=== PATIENT | male | born 1930 | race Caucasian/White ===

== ENCOUNTER 2018-07-20 11:24 | Inpatient (IN) | payer MEDICARE ==
[~2018-07-20] VITALS: Ht 177.8 cm; Wt 81.0 kg
--- NOTE | 2018-07-20 11:48 | EKG ---
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
[2018-07-20 11:51] LABS: BASO # 0.1 x10^3/uL (0.0-0.2); BASO % 1 % (0-3); EOS % 0 % (0-3); HEMATOCRIT 43.9 % (39.0-53.0); HEMOGLOBIN 14.8 g/dL (13.0-17.5); LYMPH # 1.3 x10^3/uL (1.0-4.8); LYMPH % 14 % (24-48); MEAN CORPUSCULAR HEMOGLOBIN 33 pg (25-35); MEAN CORPUSCULAR HGB CONC 34 g/dL (31-37); MEAN CORPUSCULAR VOLUME 97 fL (79-100); MONO # 1.5 x10^3/uL (0.0-1.1); MONO % 17 % (0-9); NEUT # 6.2 x10^3uL (1.8-7.7); NEUT % 68 % (31-73); PLATELET COUNT 175 x10^3/uL (140-400); RED BLOOD COUNT 4.54 x10^6/uL (4.30-5.70); RED CELL DISTRIBUTION WIDTH 14.4 % (11.5-14.5)
[2018-07-20 12:05] LABS: ALBUMIN 3.5 g/dL (3.4-5.0); ALBUMIN/GLOBULIN RATIO 0.9 (1.0-1.7); CALCIUM 8.7 mg/dL (8.5-10.1); CREATININE 0.9 mg/dL (0.7-1.3); GFR 79.8; POTASSIUM 3.9 mmol/L (3.5-5.1); TOTAL PROTEIN 7.2 g/dL (6.4-8.2)
--- NOTE | 2018-07-20 12:13 | RAD ---
CT of the head without contrast, 07/20/2018: HISTORY: Syncope There is moderate cerebral atrophy. The ventricles are mildly enlarged on a compensatory basis. There is no shift of the midline structures. There is no evidence of acute intracranial hemorrhage or mass effect. Bilateral basal ganglia calcifications are present. There are minimal lucencies in the deep white matter bilaterally most commonly due to small vessel chronic ischemic change. IMPRESSION: 1. Cerebral atrophy. 2. Mild deep white matter lucencies compatible with chronic ischemic change. 3. No acute intracranial abnormality is detected. PQRS Compliance Statement: One or more of the following individualized dose reduction techniques were utilized for this examination: 1. Automated exposure control 2. Adjustment of the mA and/or kV according to patient size 3. Use of iterative reconstruction technique Electronically signed by: Louis James MD (07/20/2018 12:09 PM) [facility]
--- NOTE | 2018-07-20 12:14 | RAD ---
Chest, 2 views, 07/20/2018: HISTORY: Syncope The heart size and pulmonary vascularity are normal. No pulmonary infiltrate is seen. There is no evidence of pleural fluid. Minimal spurring is present in the spine. IMPRESSION: No acute cardiopulmonary abnormality is detected. Electronically signed by: Louis James MD (07/20/2018 12:10 PM) [facility]
--- NOTE | 2018-07-20 12:23 | PHYS DOC ---
Adult General Chief Complaint Chief Complaint: SYNCOPE HPI HPI 88-year-old male presents via EMS with syncope. She was going to his PCPs office today for left preauricular pain. He drove there himself. After he got out of the car, he apparently passed out. He does not remember getting out of the car passing out. He was found there by bystanders. The next thing he remembers was waking up to 2 nurses helping him get up. He was able to walk into the office. He admits that he does not remember much about the incident were walking into the office. He denies any pain at this time except for the left ear pain. Patient denies any recent illness. He denies fevers or chills. He has been eating and drinking normally. He is unsure of his medical history. Review of Systems Review of Systems Constitutional: Denies fever or chills [] Eyes: Denies change in visual acuity, redness, or eye pain [] HENT: Ear pain[] Respiratory: Denies cough or shortness of breath [] Cardiovascular: No additional information not addressed in HPI [] GI: Denies abdominal pain, nausea, vomiting, bloody stools or diarrhea [] : Denies dysuria or hematuria [] Musculoskeletal: Denies back pain or joint pain [] Integument: Denies rash or skin lesions [] Neurologic: Syncope [] Endocrine: Denies polyuria or polydipsia [] All other systems were reviewed and found to be within normal limits, except as documented in this note. Allergies Allergies Allergies Coded Allergies Type Severity Reaction Last Updated Verified No Known Drug Allergies 07/20/18 No Physical Exam Physical Exam Constitutional: Well developed, well nourished, no acute distress, non-toxic appearance. [] HENT: Normocephalic, atraumatic, bilateral external ears normal, oropharynx moist, no oral exudates, nose normal. Tenderness to palpation of the left preauricular skin. No obvious mass or cellulitis.[] Eyes: PERRLA, EOMI, conjunctiva normal, no discharge. [] Neck: Normal range of motion, no tenderness, supple, no stridor. [] Cardiovascular:Heart rate regular rhythm, no murmur [] Lungs & Thorax: Bilateral breath sounds clear to auscultation [] Abdomen: Bowel sounds normal, soft, no tenderness, no masses, no pulsatile masses. [] Skin: Warm, dry, no erythema, no rash. [] Back: No tenderness, no CVA tenderness. [] Extremities: No tenderness, no cyanosis, no clubbing, ROM intact, no edema. [] Neurologic: Alert and oriented, normal motor function, normal sensory function, no focal deficits noted. [] Psychologic: Affect normal, judgement normal, mood normal. [] Current Patient Data Lab Results Laboratory Tests Test 07/20/18 11:37 White Blood Count 9.0 x10^3/uL (4.0-11.0) Red Blood Count 4.54 x10^6/uL (4.30-5.70) Hemoglobin 14.8 g/dL (13.0-17.5) Hematocrit 43.9 % (39.0-53.0) Mean Corpuscular Volume 97 fL (79-100) Mean Corpuscular Hemoglobin 33 pg (25-35) Mean Corpuscular Hemoglobin Concent 34 g/dL (31-37) Red Cell Distribution Width 14.4 % (11.5-14.5) Platelet Count 175 x10^3/uL (140-400) Neutrophils (%) (Auto) 68 % (31-73) Lymphocytes (%) (Auto) 14 % (24-48) L Monocytes (%) (Auto) 17 % (0-9) H Eosinophils (%) (Auto) 0 % (0-3) Basophils (%) (Auto) 1 % (0-3) Neutrophils # (Auto) 6.2 x10^3uL (1.8-7.7) Lymphocytes # (Auto) 1.3 x10^3/uL (1.0-4.8) Monocytes # (Auto) 1.5 x10^3/uL (0.0-1.1) H Eosinophils # (Auto) 0.0 x10^3/uL (0.0-0.7) Basophils # (Auto) 0.1 x10^3/uL (0.0-0.2) Sodium Level 137 mmol/L (136-145) Potassium Level 3.9 mmol/L (3.5-5.1) Chloride Level 101 mmol/L (98-107) Carbon Dioxide Level 30 mmol/L (21-32) Anion Gap 6 (6-14) Blood Urea Nitrogen 15 mg/dL (8-26) Creatinine 0.9 mg/dL (0.7-1.3) Estimated GFR (Cockcroft-Gault) 79.8 BUN/Creatinine Ratio 17 (6-20) Glucose Level 97 mg/dL (70-99) Calcium Level 8.7 mg/dL (8.5-10.1) Total Bilirubin 1.0 mg/dL (0.2-1.0) Aspartate Amino Transferase (AST) 20 U/L (15-37) Alanine Aminotransferase (ALT) 23 U/L (16-63) Alkaline Phosphatase 105 U/L (46-116) Troponin I Quantitative 0.017 ng/mL (0-0.055) Total Protein 7.2 g/dL (6.4-8.2) Albumin 3.5 g/dL (3.4-5.0) Albumin/Globulin Ratio 0.9 (1.0-1.7) L EKG EKG Sinus rhythm, rate 89,, normal axis, left bundle branch block since 2-15, no ST elevations or depressions.[] Radiology/Procedures Radiology/Procedures [] Impressions: CT of the head without contrast, 07/20/2018: HISTORY: Syncope There is moderate cerebral atrophy. The ventricles are mildly enlarged on a compensatory basis. There is no shift of the midline structures. There is no evidence of acute intracranial hemorrhage or mass effect. Bilateral basal ganglia calcifications are present. There are minimal lucencies in the deep white matter bilaterally most commonly due to small vessel chronic ischemic change. IMPRESSION: 1. Cerebral atrophy. 2. Mild deep white matter lucencies compatible with chronic ischemic change. 3. No acute intracranial abnormality is detected. PQRS Compliance Statement: One or more of the following individualized dose reduction techniques were utilized for this examination: 1. Automated exposure control 2. Adjustment of the mA and/or kV according to patient size 3. Use of iterative reconstruction technique Electronically signed by: Louis James MD (07/20/2018 12:09 PM) [facility] DICTATED AND SIGNED BY: LOUIS JAMES MD DATE: 07/20/18 1206 CC: HIRAM CARMONA DO; PCP,NO Chest, 2 views, 07/20/2018: HISTORY: Syncope The heart size and pulmonary vascularity are normal. No pulmonary infiltrate is seen. There is no evidence of pleural fluid. Minimal spurring is present in the spine. IMPRESSION: No acute cardiopulmonary abnormality is detected. Electronically signed by: Louis James MD (07/20/2018 12:10 PM) [facility] DICTATED AND SIGNED BY: LOUIS JAMES MD DATE: 07/20/18 1209 CC: HIRAM CARMONA DO; PCP,NO Course & Med Decision Making Course & Med Decision Making Pertinent Labs and Imaging studies reviewed. (See chart for details) Patient's labs are unremarkable. His urinalysis is unremarkable. His EKG is unremarkable. His chest x-ray is unremarkable. His head CT is negative for acute findings. I do not have a reason for the patient's syncope. I do believe he warrants additional workup. I discussed the case with Dr. Staples and he has accepted the patient for admission. The patient is in agreement with admission. [] Dragon Disclaimer Dragon Disclaimer This electronic medical record was generated, in whole or in part, using a voice recognition dictation system. Departure Departure: Impression: Primary Impression: Syncope Disposition: 09 ADMITTED INPATIENT Admitting Physician: Rita Staples Condition: STABLE Referrals: PCP,NO (PCP) Problem Qualifiers Primary Impression: Syncope Syncope type: unspecified Qualified Codes: R55 - Syncope and collapse HIRAM CARMONA DO Jul 20, 2018 12:23
[2018-07-20 12:56] LABS: BACTERIA,URINE 0 /HPF (0-FEW); BILIRUBIN,URINE NEG (NEG); CLARITY,URINE HAZY; COLOR,URINE YELLOW; GLUCOSE,URINE 100 mg/dL (NEG); HYALINE CASTS, URINE OCC /HPF; NITRITE,URINE NEG (NEG); SQUAMOUS EPITHELIAL CELL,UR OCC /LPF; UROBILINOGEN,URINE 2 mg/dL (0.2 mg/dL); WBC,URINE 0 /HPF (0-4)
[2018-07-20 15:33] VITALS: BP 151/75
[2018-07-20] MEDS ORDERED: MULT1TAB52 PO (15:59)
[2018-07-20] MEDS ORDERED: ASPI-630 PO (15:59)
[2018-07-20] MEDS ORDERED: CALC-30 PO (15:59)
--- NOTE | 2018-07-20 17:30 | PDOC ---
PROVIDER NOTE PROVIDER NOTE PROVIDER NOTE Reason for consultation: Near-syncope History of present illness 88-year-old man who has history is limited mostly due to his underlying memory problems but based on what I can gather he apparently drove from his residence and upon arrival to his destination states that he slipped on after getting out of the car. He does not recall any other significant events. He was found by bystanders and sent to the ER. Initial ER evaluation does not reveal any significant pathology. Past medical history none Social history lives at [place]. Denies any alcohol, tobacco or illicit drug use. No known drug allergies. Current cardiac medications none Review of systems as noted above in history of present illness otherwise negative. Physical examination Vital signs stable The patient appeared well nourished and normally developed. Head exam is unremarkable. No scleral icterus or corneal arcus noted. Neck is without jugular venous distension, thyromegaly, or carotid bruits. Carotid upstrokes are brisk bilaterally. Lungs are clear to auscultation and percussion. Cardiac exam reveals the PMI to be normally sized and situated. Rhythm is regular. First and second heart sounds normal. No murmurs, rubs or gallops. Abdominal exam reveals normal bowel sounds, no masses, no organomegaly and no aortic enlargement. Extremities are nonedematous and both femoral and pedal pulses are normal. Msk: No traumua Neuro: No focal deficits Diagnostic studies labs, urinalysis, chest x-ray, CT scan unremarkable. EKG demonstrates sinus rhythm with a left bundle branch block Impression: 1. Syncope of unclear etiology: Differential diagnosis includes arrhythmia, vasovagal Recommendations: 1. Agree with echocardiogram. 2. Plan for outpatient event monitor. Supportive care. WASHINGTON NORIEGA MD Jul 20, 2018 17:30
--- NOTE | 2018-07-20 17:42 | CARD ---
MR#: [id number] Date of Study: 07/20/2018 Ordering Physician: YAZAN PENDLETON, Referring Physician: YAZAN PENDLETON Tech: Berna Owen RDCS APPROVED REPORT EXAM: Two-dimensional and M-mode echocardiogram with Doppler and color Doppler. Other Information Quality : Good INDICATION Syncope 2D DIMENSIONS Left Atrium(2D)3.1 (1.6-4.0cm)IVSd1.0 (0.7-1.1cm) Aortic Root(2D)2.7 (2.0-3.7cm)LVDd3.8 (3.9-5.9cm) LVOT Diameter2.0 (1.8-2.4cm)PWd1.0 (0.7-1.1cm) LVDs2.9 (2.5-4.0cm)FS (%) 22.9 % SV29.1 mlLVEF(%)55.0 (>50%) Aortic Valve AoV Peak Francisco.178.7cm/sAoV VTI34.2cm AO Peak GR.12.8mmHgLVOT Peak Francisco.114.1cm/s LVOT VTI 21.74cmAO Mean GR.9mmHg RAQUEL (VMAX)1.62au7LCL (VTI)1.97cm2 Mitral Valve MV E Ybyvnjcp26.1cm/sMV DECEL WPFC711xr MV A Zrtpnvze050.5cm/sE/A Ratio0.6 Tricuspid Valve TR P. Mbvnhlfi644cl/sRAP JCRVMKBU1maEw TR Peak Gr.78vwYcUKTS15mqQu LEFT VENTRICLE The left ventricle is normal size. There is normal left ventricular wall thickness. The left ventricu lar systolic function is normal and the ejection fraction is within normal range. The Ejection Fracti on is 55-60%. There is normal LV segmental wall motion. Transmitral Doppler flow pattern is Grade I-a bnormal relaxation pattern. RIGHT VENTRICLE The right ventricle is normal size. The right ventricular systolic function is normal. ATRIA The left atrium size is normal. The right atrium size is normal. The interatrial septum is intact wit h no evidence for an atrial septal defect or patent foramen ovale as noted on 2-D or Doppler imaging. AORTIC VALVE The aortic valve is calcified but opens well. Doppler and Color Flow revealed trace aortic regurgitat ion. There is no significant aortic valvular stenosis. MITRAL VALVE The mitral valve is calcified but opens well. There is no evidence of mitral valve prolapse. There is no mitral valve stenosis. Doppler and Color-flow revealed trace mitral regurgitation. TRICUSPID VALVE The tricuspid valve is normal in structure and function. Doppler and Color Flow revealed trace to mil d tricuspid regurgitation. There is mild-moderate pulmonary hypertension. The PA pressure was estimat ed at 40 mmHg. There is no tricuspid valve stenosis. PULMONIC VALVE The pulmonic valve is not well visualized. Doppler and Color Flow revealed no pulmonic valvular regur gitation. There is no pulmonic valvular stenosis. GREAT VESSELS The aortic root is normal in size. The ascending aorta is not well seen. The IVC is normal in size an d collapses >50% with inspiration. PERICARDIAL EFFUSION There is no evidence of significant pericardial effusion. Critical Notification Critical Value: No <Conclusion> The left ventricular systolic function is normal and the ejection fraction is within normal range. Th e Ejection Fraction is 55-60%. There is normal LV segmental wall motion. Doppler and Color Flow revealed trace to mild tricuspid regurgitation. There is mild-moderate pulmona ry hypertension. The PA pressure was estimated at 40 mmHg. Signed by : Eric Sam, Electronically Approved : 07/20/2018 17:41:05
[2018-07-20 19:49] VITALS: BP 128/72
[2018-07-21 01:23] VITALS: BP 127/67
[2018-07-21 06:03] VITALS: BP 122/63
[2018-07-21] MEDS ORDERED: ASPIRIN 81 MG TAB.CHEW PO SCH (08:00)
--- NOTE | 2018-07-21 08:03 | RAD ---
Carotid ultrasound, 07/20/2018: HISTORY: Syncope Duplex evaluation of the carotid arteries and neck was performed including grayscale, color-flow and spectral Doppler analysis. There is mild intimal thickening in the carotid arteries bilaterally with minimal smooth plaquing at the carotid bifurcations. The peak systolic velocity in the right internal carotid artery is 73 cm/s with an end-diastolic velocity of 16 cm/s and an internal carotid to common carotid artery ratio of 0.9. On the left, the peak systolic velocity in the internal carotid artery is 76 cm/s with an end-diastolic velocity of 17 cm/s and an internal carotid to common carotid artery ratio of 0.9. These Doppler findings do not suggest significant stenosis. Antegrade flow is present in both vertebral arteries in the neck. IMPRESSION: No duplex evidence of a significant carotid stenosis in the neck. Note: Stenosis calculations for CT, MRA and conventional angiography are based upon determination of the distal ICA diameter in accordance with the NASCET methodology. Stenosis calculations for Doppler studies are derived from validated velocity criteria which are known to correlate with NASCET methodology of determining stenosis. Electronically signed by: Louis James MD (07/21/2018 7:59 AM) [facility]
[2018-07-21] MEDS ORDERED: CALCIUM CARB/VIT D3 500/200 TABLET PO SCH (09:00)
[2018-07-21] MEDS ORDERED: MULTIVITAMIN with MINERAL TABLET. PO SCH (09:00)
--- NOTE | 2018-07-21 10:17 | PDOC ---
PROGRESS NOTES Diagnosis Problem Problems Medical Problems: (1) Syncope Status: Acute Assessment Problems Medical Problems: (1) Syncope Status: Acute syncope unkown etiology, no significant arrhythmias, no new syncope. await echo and plan for outpatient monitoring Subjective up in chair, denies chest pain or lightheadedness, reports feeling disoriented off and on Objective Vital Signs Date Time Temp Pulse Resp B/P (MAP) Pulse Ox O2 Delivery O2 Flow Rate FiO2 07/21/18 08:00 Room Air 07/21/18 07:22 77 07/21/18 06:03 98.8 18 122/63 (82) 96 Intake and Output 07/21/18 07:01 Intake Total 520 ml Output Total 2 ml Balance 518 ml Intake Oral 520 ml Output Urine Total 2 ml # Voids 1 Physical Exam gen awake, alert, nad cv RRR, no gallops, clicks or rubs lungs CTA abd soft, bowel sounds present ext no edema Review of Relevant I have reviewed the following items damaris (where applicable) has been applied. Labs Laboratory Tests Test 07/20/18 11:37 07/20/18 12:37 White Blood Count 9.0 x10^3/uL (4.0-11.0) Red Blood Count 4.54 x10^6/uL (4.30-5.70) Hemoglobin 14.8 g/dL (13.0-17.5) Hematocrit 43.9 % (39.0-53.0) Mean Corpuscular Volume 97 fL (79-100) Mean Corpuscular Hemoglobin 33 pg (25-35) Mean Corpuscular Hemoglobin Concent 34 g/dL (31-37) Red Cell Distribution Width 14.4 % (11.5-14.5) Platelet Count 175 x10^3/uL (140-400) Neutrophils (%) (Auto) 68 % (31-73) Lymphocytes (%) (Auto) 14 % (24-48) Monocytes (%) (Auto) 17 % (0-9) Eosinophils (%) (Auto) 0 % (0-3) Basophils (%) (Auto) 1 % (0-3) Neutrophils # (Auto) 6.2 x10^3uL (1.8-7.7) Lymphocytes # (Auto) 1.3 x10^3/uL (1.0-4.8) Monocytes # (Auto) 1.5 x10^3/uL (0.0-1.1) Eosinophils # (Auto) 0.0 x10^3/uL (0.0-0.7) Basophils # (Auto) 0.1 x10^3/uL (0.0-0.2) Sodium Level 137 mmol/L (136-145) Potassium Level 3.9 mmol/L (3.5-5.1) Chloride Level 101 mmol/L (98-107) Carbon Dioxide Level 30 mmol/L (21-32) Anion Gap 6 (6-14) Blood Urea Nitrogen 15 mg/dL (8-26) Creatinine 0.9 mg/dL (0.7-1.3) Estimated GFR (Cockcroft-Gault) 79.8 BUN/Creatinine Ratio 17 (6-20) Glucose Level 97 mg/dL (70-99) Calcium Level 8.7 mg/dL (8.5-10.1) Total Bilirubin 1.0 mg/dL (0.2-1.0) Aspartate Amino Transf (AST/SGOT) 20 U/L (15-37) Alanine Aminotransferase (ALT/SGPT) 23 U/L (16-63) Alkaline Phosphatase 105 U/L (46-116) Troponin I Quantitative 0.017 ng/mL (0-0.055) Total Protein 7.2 g/dL (6.4-8.2) Albumin 3.5 g/dL (3.4-5.0) Albumin/Globulin Ratio 0.9 (1.0-1.7) Urine Collection Type Unknown Urine Color Yellow Urine Clarity Hazy Urine pH 6.5 Urine Specific [place] 1.020 Urine Protein Neg (NEG-TRACE) Urine Glucose (UA) 100 mg/dL (NEG) Urine Ketones (Stick) 40 mg/dL (NEG) Urine Blood Trace (NEG) Urine Nitrite Neg (NEG) Urine Bilirubin Neg (NEG) Urine Urobilinogen Dipstick 2 mg/dL (0.2 mg/dL) Urine Leukocyte Esterase Neg (NEG) Urine RBC 3-5 /HPF (0-2) Urine WBC 0 /HPF (0-4) Urine Squamous Epithelial Cells Occ /LPF Urine Bacteria 0 /HPF (0-FEW) Urine Hyaline Casts Occ /HPF Urine Mucus Slight /LPF Medications Current Medications Aspirin (Children'S Aspirin) 81 mg DAILYWBKFT PO Last administered on at 07:57; Start 07/21/18 at 08:00 Calcium/Vitamin D (Oscal D 500mg/ 200uts) 1 tab DAILY PO Last administered on at 07:57; Start 07/21/18 at 09:00 Multivitamins/ Calcium (Thera-M Plus) 1 tab DAILY PO Last administered on at 07:57; Start 07/21/18 at 09:00 Active Scripts Active Reported Calcium 500 + Vit D 400 Tablet (Calcium Carbonate/Vitamin D3) 1 Each Tablet 1 Each PO DAILY Aspirin 81 Mg Tab.chew 81 Mg PO DAILY Multivitamins (Multivitamin) 1 Each Tablet 1 Tab PO DAILY Vitals/I & O Vital Sign - Last 24 Hours 07/20/18 07/20/18 07/20/18 07/20/18 11:25 13:41 14:10 15:33 Temp 98.8 99.0 Pulse 84 93 80 82 Resp 16 B/P (MAP) 152/80 (104) 136/65 (88) 151/75 (100) Pulse Ox 98 97 98 97 O2 Delivery Room Air Room Air Room Air Room Air 07/20/18 07/20/18 07/20/18 07/21/18 15:49 19:49 20:00 00:44 Temp 98.3 Pulse 77 78 Resp 18 B/P (MAP) 128/72 (90) Pulse Ox 96 O2 Delivery Room Air Room Air Room Air 07/21/18 07/21/18 07/21/18 07/21/18 01:23 06:03 07:22 08:00 Temp 98.7 98.8 Pulse 77 11 77 Resp 18 18 B/P (MAP) 127/67 (87) 122/63 (82) Pulse Ox 94 96 O2 Delivery Room Air Room Air Room Air Intake and Output 07/20/18 07/20/18 07/21/18 15:01 23:01 07:01 Intake Total 360 ml 160 ml Output Total 1 ml 1 ml Balance 359 ml 159 ml MAGDIEL PRITCHETT APRN Jul 21, 2018 10:17
[2018-07-21 11:26] VITALS: BP 148/71
--- NOTE | 2018-07-21 15:07 | HP ---
ADMIT DATE: 07/20/2018 HISTORY OF PRESENT ILLNESS: The patient is an 88-year-old male patient, a resident at [facility], who apparently was brought to the Emergency Room by ambulance with syncope. He was going to his primary care physician's office for left preauricular pain. He drove there himself. After he gets out of the car, he apparently passed out. He does not remember getting out of the car, passing out. He was found there by bystander, the next day he remember, he was waking up with 2 nurses helping him, get up. He was able to walk into the office. He admits, does not remember much about the incident and walked into the office. He denies any chest pain. At this time, except his left ear pain, denied any recent illness and basically he was extensively investigated in the Emergency Room. He has had lab work, which was unremarkable and he had a CT scan of the head, which showed no history of cerebral atrophy and mild deep white matter lucencies, compatible with chronic ischemic changes. No acute intracranial abnormalities detected. So, the patient was admitted with a plan to consult the neurologist as well as the Cardiology team and arrangement was made for him to have a carotid Doppler ultrasound. PAST MEDICAL HISTORY: Apparently unremarkable. He said that he is basically healthy. He has never had any medical problem. PAST SURGICAL HISTORY: Significant for tonsillectomy and cholecystectomy. ALLERGIES: He has no known drug allergies. MEDICATIONS: He is currently on an aspirin 81 mg once a day, calcium carbonate with vitamin D one tablet once a day, multivitamin 1 tablet once a day. FAMILY HISTORY: Unremarkable. SOCIAL HISTORY: He is single, lives in the [facility]. His nephew is the DPOA. He does not smoke, drink alcohol or use any recreational drugs. REVIEW OF SYSTEMS: As per history of present illness. PHYSICAL EXAMINATION: GENERAL: On arrival to the Emergency Room, he looked well and was clearly in no apparent respiratory distress. No pallor, jaundice, cyanosis, or thyromegaly. No jugular venous distension. No limb edema. VITAL SIGNS: His heart rate was 84, blood pressure was 152/80, temperature was 97, respiratory rate was 16, and oxygen saturation was 97%. HEAD, EYES, EARS, NOSE, AND THROAT: Showed normocephalic, atraumatic. NECK: Supple. HEART: Showed normal first and second sounds. No gallop, rub or murmur. CHEST: Clear to auscultation. No crepitation or rhonchi. ABDOMEN: Soft, nontender. No guarding or rigidity. No organomegaly. All hernial orifice intact. Bowel sounds normal. NEUROLOGIC: He was clearly demented with poor memory, but otherwise all his cranial nerves are intact. EXTREMITIES: He moves extremities without difficulty. There was no evidence of postural drop. LABORATORY DATA: On admission showed a white cell count of 9000, hemoglobin 14.8, hematocrit 44, MCV 97 and platelet count of 175,000. His chemistry showed a serum sodium 137, potassium 3.9, chloride 101, bicarbonate 30, anion gap of 6, BUN 15, creatinine 0.9, Estimated GFR was 79 mL per minute. His glucose was 97, calcium was 8.7. Total bilirubin, AST, ALT, alkaline phosphatase were normal. Total protein was 7.2, albumin 3.5. Urinalysis showed the urine was yellow, hazy with a pH of 6.5, specific gravity 1.020. There was small amount of glucose, small amount of ketones, trace of blood, negative for nitrite and leukocyte esterase, 3-4 rbc's, no wbc's, and no bacteria. His CT scan of the head showed that there is cerebral atrophy with no acute intracranial abnormality detected. Chest x-ray was unremarkable and showed there is no acute cardiopulmonary abnormalities detected. ASSESSMENT AND PLAN: The patient was admitted to consult the cardiology and neurologist and we will arrange for him to have a carotid Doppler as well as an echocardiogram to investigate his syncope versus seizure disorder. YAZAN PENDLETON MD DR: PINYK/marietta JOB#: [id number] / [id number]
--- NOTE | 2018-07-21 15:07 | DS ---
DATE OF DISCHARGE: 07/21/2018 HOSPITAL COURSE: This is an 88-year-old male patient, [facility], who was brought to the Emergency Room with a syncopal episode. He apparently drove to his primary care physician and fell in the parking lot and was found by bystanders. He has no memory of the event and was brought to the Emergency Room. He was extensively investigated. His lab works were unremarkable. His CT scan of the head was unremarkable; however, he underwent bilateral carotid Doppler ultrasound, which showed no duplex evidence of significant carotid stenosis in the neck. He was seen in consultation by the Cardiology team and has had an echocardiogram, which basically showed that the left ventricular systolic function is normal and ejection fraction is within normal range. The ejection fraction is 55-60%. There is normal left ventricular segmental wall motion. Doppler and color flow revealed eumrg-qx-tiqz tricuspid regurgitation. There is hint-hk-zkhzdyhq pulmonary hypertension. The pulmonary artery pressure was estimated at 40 mmHg. The patient was evaluated by physical and occupational therapy and he has been steady on his feet. He has no evidence of postural hypertension and the plan was for him to be discharged back to [facility] with an appointment for him to see Dr. Dennis as an outpatient for EEG. We have contacted his DPOA as he probably needs his license and car keys to be taken out from him at least to make sure that it is safe for him to drive, although with his memory impairment, I think it is probably chang not to allow him to drive for his safety and the public safety. FINAL DISCHARGE DIAGNOSES: 1. Syncopal episode versus seizure disorder. 2. Memory impairment. YAZAN PENDLETON MD DR: PINKY/marietta JOB#: [id number] / [id number]
--- NOTE | 2018-07-21 15:41 | CONS ---
DATE OF CONSULTATION: 07/21/2018 NEUROLOGIC CONSULTATION REFERRING PHYSICIAN: Dr. Staples. REASON FOR CONSULTATION: Syncope versus seizure. HISTORY OF PRESENT ILLNESS: This is an 88-year-old right-handed male who was admitted through Emergency Room after he presented with sudden onset of possible syncope versus seizure. According to the patient, he was going to his primary care doctor's office for left ear pain. He drove by himself, but when he tried to get out of the car he possibly passed out. The patient did not remember passing out. He was found by a bystander. Subsequently, he was helped by 2 office nurses and he started regaining his memory when he was waking up in the doctor's office. The patient did not recall the events; however, he told me that he did not lose consciousness and he did recall the event. The patient denies any history of seizure or stroke. He denies any history of syncope in the past. Currently, he denies headaches, visual disturbances, nausea, vomiting, chest pain, shortness of breath or palpitation, dysarthria or dysphagia. The patient was seen by a mesh man for possible syncopal attack of unknown etiology. Echocardiogram was performed and revealed a normal left ventricular function with ejection fraction of 55-60% with [id number]-[id number] pulmonary hypertension, otherwise unremarkable. EKG was also performed and revealed normal sinus rhythm. PAST MEDICAL HISTORY: Significant for memory loss and possible early dementia, history of glaucoma and irritable bowel syndrome. Otherwise, unremarkable. SOCIAL HISTORY: The patient lives at [facility]. He denies smoking, alcohol drinking, or illicit drug use. FAMILY HISTORY: Noncontributory. CURRENT HOME MEDICATIONS: Multivitamins, calcium, Vitamin D, aspirin 81 mg p.o. daily. ALLERGIES: No known drug allergies. REVIEW OF SYSTEMS: A 10-point review of system was performed as mentioned above in history of present illness, otherwise unremarkable. PHYSICAL EXAMINATION: GENERAL: Well-developed, well-nourished male, not in acute distress. He weighs 178 pounds. VITAL SIGNS: Blood pressure 122/63, respiratory rate 18, pulse is 77, temperature 98.8, oxygen saturation 96% on room air. HEENT: Normocephalic, atraumatic, otherwise unremarkable. NECK: Supple. Negative for carotid bruit, lymphadenopathy, JVD or thyromegaly. LUNGS: Clear to A and P. CARDIOVASCULAR: Regular rate and rhythm, normal S1, S2. There is no S3, S4 or murmur. ABDOMEN: Soft. Bowel sounds positive. EXTREMITIES: Negative for cyanosis, clubbing or pitting edema. NEUROLOGIC: Mental Status: The patient is alert and oriented x2. The speech is fluent. There is no language dysfunction. Memory, patient recalls 2/3 immediately and after 1 and 3 minutes. Judgment and abstract thinking are fair. The patient denies hallucination or delusion. CRANIAL NERVES: Visual marquez are full. The pupils are reactive to light and accommodation. The extraocular movements are intact. There is no nystagmus. There is no facial motor or sensory deficit. Hearing appeared intact. The palate is elevated symmetrically. Sternocleidomastoid muscles are powerful bilaterally. The patient shrugs his shoulders symmetrically, protrudes his tongue in the midline without fasciculation or atrophy. MOTOR: No focal muscle bulk was seen. The tone is normal. The strength is 5/5 throughout. Sensory examination revealed normal pinprick and light touch senses throughout. Deep tendon reflexes were symmetric and hypoactive with absent Achilles responses. Gait: The stance is steady: LABORATORY DATA: CBC revealed white blood cells of 9000, hemoglobin 14.8, hematocrit 43.9 and platelet count 175,000. Chemistry revealed sodium of 137, potassium 3.9, chloride 101, CO2 of 30, BUN is 15, creatinine 0.9, glucose is 97, calcium 8.7. Liver enzymes are normal. Troponin level is normal. Urinalysis is negative for urinary tract infections. DIAGNOSTIC DATA: Initial nonenhanced head CT scan revealed no acute intracranial process, but showed chronic small vessel ischemic changes. A carotid Doppler study revealed no evidence of significant carotid artery stenosis. A chest x-ray revealed no evidence of acute cardiopulmonary process. IMPRESSION: 1. Sudden onset of fall or loss of consciousness, rule out syncope versus seizure. Rule out with cardiac arrhythmia or vasovagal phenomena. 2. Possible early dementia, presented with memory loss. 3. History of glaucoma. RECOMMENDATIONS: 1. Continue with cardiology recommendation. 2. Continue with current management initiated by Dr. Staples. 3. We will arrange for the electroencephalogram. This can be done on an outpatient basis. 4. Physical therapy evaluation. M Russel HENDRIX MD DR: Tulio JOB#: [id number] / [id number]
== END 2018-07-21 14:35 | disposition home or self-care (01) | DRG 101 ==
LOC: ER 11:24 → 1 SOUTH 15:12
PROVIDERS: ADMIT Internal Medicine; ATTEND Internal Medicine
DX: G40.909 Epilepsy, unspecified, not intractable, without status epilepticus (principal); I27.20 Pulmonary hypertension, unspecified; H40.9 Unspecified glaucoma; W18.39XA Other fall on same level, initial encounter; Y93.89 Activity, other specified; Y92.481 Parking lot as the place of occurrence of the external cause; Y99.8 Other external cause status; G31.84 Mild cognitive impairment of uncertain or unknown etiology; Z79.899 Other long term (current) drug therapy
CPT/HCPCS: 36415; 70450; 71046; 80053; 81001; 84484; 85025; 87641; 93005; 93306; 93880; 99285-25

== ENCOUNTER 2018-12-07 16:25 | Inpatient (IN) | payer MEDICARE, OTHER ==
[~2018-12-07] VITALS: Ht 182.9 cm; Wt 74.8 kg
[~2018-12-07 16:25] MED LIST: ASPI-630 PO; CALC-30 PO; MULT1TAB52 PO
--- NOTE | 2018-12-07 16:32 | NUR ---
Admission Note with Justification for Admission to [facility] Patient admitted to [facility] for protective oversight for emergency stabilization of acute psychiatric crisis. Pt admitted from: -[facility] Mode of arrival: transportation by facility Accompanied By: Caregivers from facility. Precipitating behaviors that initiated intake and admission: It was reported that patient has been yelling out repetitively and is socially disruptive. Patient has insomnia, is agitated and has had a rapid decline. He is restless and has been attempting to stand/transfer without assistance, he is unable to transfer safely. Description of failure of out patient attempts at stabilization in previous setting list behavior and medication trials: he has had several ER visits, has been on Seroquel and ativan and neither was effective. Behaviors and assessment findings upon admission: Patient arrived at 1610 accompanied by two staff members from [facility]. He was a direct admit as he had already had blood work and urine sample done at facility. He is a patient of Dr. Staples at [facility]. When asked why he was here, patient stated that he was here "to see the lady" and "because of Valentina". He was unable to explain who Valentina is. He was oriented to name and , but stated that it was June 1997. Vital signs obtained WNL, belongings inventoried and regular dinner tray was ordered. Chair alarm was placed on patient wheelchair r/t his behavior at facility of attempting to get up unassisted and impulsiveness. He denies pain, stating he is "pretty healthy". 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 He has never and has no children. He wears glasses and is in his own wheelchair, he is slightly MASHPEE but has no hearing aides present. He has no dentures. He is clean, pleasant and calm at the time of admission. Plan: Admit for protective oversight for adjustment and stabilization of medications, behaviors and mood. Intense treatment regimen including groups, medication adjustments, therapy, consistent regimen for ADL's, self care, and sleep hygiene. Daily monitoring by Inpatient staff, Psychiatry, and Medical Physician.
[2018-12-07 16:51] VITALS: BP 132/80
[2018-12-07] MEDS ORDERED: ACETAMINOPHEN 325 MG TABLET PO PRN ×2 (18:15→18:45)
[2018-12-07] MEDS ORDERED: MAG HYDROX/AL HYDROX/SIMETH 30 ML ORAL.SUSP PO PRN (18:15)
[2018-12-07] MEDS ORDERED: METHYL SALICYLATE/MENTHOL TOPICAL OINTMENT 29GM TUBE. TP PRN (18:15)
[2018-12-07] MEDS ORDERED: MAGNESIUM HYDROXIDE 2,400 MG/30 ML ORAL.SUSP. PO PRN (18:15)
[2018-12-07] MEDS ORDERED: LORA0.5T PO (18:39)
[2018-12-07] MEDS ORDERED: TAMS0.4C97 PO (18:39)
[2018-12-07] MEDS ORDERED: POLY17PO5 PO (18:39)
[2018-12-07] MEDS ORDERED: FAMO40TA4 PO (18:39)
[2018-12-07] MEDS ORDERED: MULT-557 PO (18:39)
[2018-12-07] MEDS ORDERED: FINA5TAB4 PO (18:39)
[2018-12-07] MEDS ORDERED: METO-239 PO (18:39)
[2018-12-07] MEDS ORDERED: LATA2.5D2 EACHEYE (18:39)
[2018-12-07] MEDS ORDERED: CALC-157 PO (18:39)
[2018-12-07] MEDS ORDERED: DOCU-109 PO (18:39)
[2018-12-07] MEDS ORDERED: ACET325T9 PO (18:39)
[2018-12-07] MEDS ORDERED: MELA3TAB2 PO (18:39)
[2018-12-07] MEDS: DOCUSATE SODIUM 100 MG CAPSULE PO SCH (20:20)
[2018-12-07] MEDS: MELATONIN 3 MG TABLET PO SCH (20:20)
--- NOTE | 2018-12-07 20:45 | NUR ---
Nursing Note The patient was located in the day room for his assessment and medication pass. The patient took his medication whole. The patient was appropriate during his assessment and was interactive with staff and peers. The patient is currently located in the day room.
[2018-12-07] MEDS: LATANOPROST 0.005% OPHTH SOLUTION 2.5ML BOTTLE. OU SCH (21:00)
--- NOTE | 2018-12-07 21:21 | EKG ---
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 IVCD ABNORMAL ECG RI6.02 Compared to ECG 07/20/2018 11:38:42 No significant changes Electronically Signed On 12-30-2018 16:56:56 CDT by Sandip Sainz
--- NOTE | 2018-12-07 22:46 | PDOC ---
Exam Note: Rich Note: Please also refer to the separate dictated note~for this date of service dictated separately. Discussed the patient with Nursing staff reviewed the chart.~Reviewed interim history and current functioning. Reviewed vital signs,~Labs/ Radiology~and current medications noted below. Continue current treatment with the changes noted in the dictated addendum note Assessment: Vital Signs: Vital Signs Date Time Temp Pulse Resp B/P (MAP) Pulse Ox O2 Delivery O2 Flow Rate FiO2 12/07/18 16:51 97.9 68 18 132/80 (97) 96 Current Medications: Meds: Current Medications Acetaminophen (Tylenol) 650 mg PRN Q6HRS PRN PO PAIN / TEMP; Start 12/07/18 at 18:15; Status Cancel Multi-Ingredient Ointment (Analgesic Holcomb) 1 bert PRN QID PRN TP MUSCLE PAIN; Start 12/07/18 at 18:15 Al Hydroxide/Mg Hydroxide (Mylanta Plus Xs) 15 ml PRN AFTMEALHC PRN PO DYSPEPSIA; Start 12/07/18 at 18:15 Magnesium Hydroxide (Milk Of Magnesia) 2,400 mg PRN QHS PRN PO CONSTIPATION; Start 12/07/18 at 18:15 Acetaminophen (Tylenol) 650 mg PRN Q6HRS PRN PO PAIN; Start 12/07/18 at 18:45 Calcium/Vitamin D (Oscal D 500mg/ 200uts) 1 tab DAILY PO ; Start 12/08/18 at 09:00 Metoprolol Succinate (Toprol Xl) 25 mg DAILY PO ; Start 12/08/18 at 09:00 Tamsulosin HCl (Flomax) 0.4 mg DAILY PO ; Start 12/08/18 at 09:00 Aspirin (Children'S Aspirin) 81 mg DAILYWBKFT PO ; Start 12/08/18 at 08:00 Non-Formulary Medication (Calcium Carbonate/Vitamin D3 (Calcium 500 + Vit D 400 Tablet)) 1 each DAILY PO ; Start 12/08/18 at 09:00; Status UNV Docusate Sodium (Colace) 100 mg BID PO Last administered on 12/07/18at 20:20; Start 12/07/18 at 21:00 Famotidine (Pepcid) 40 mg DAILY PO ; Start 12/08/18 at 09:00 Finasteride (Proscar) 5 mg DAILY PO ; Start 12/08/18 at 09:00 Latanoprost (Xalatan) 1 drop QHS OU ; Start 12/07/18 at 21:00 Lorazepam (Ativan) 0.5 mg PRN Q6HRS PRN PO ANXIETY / RESTLESSNESS; Start 12/07/18 at 19:00 Melatonin 3 mg QHS PO Last administered on 12/07/18at 20:20; Start 12/07/18 at 21:00 Non-Formulary Medication (Multivitamin (Multivitamins)) 1 tab DAILY PO ; Start 12/08/18 at 09:00; Status UNV Multivitamins/ Calcium (Thera-M Plus) 1 tab DAILY PO ; Start 12/08/18 at 09:00 Polyethylene Glycol (miraLAX) 17 gm DAILY PO ; Start 12/08/18 at 09:00 Active Scripts Active Reported Flomax (Tamsulosin Hcl) 0.4 Mg Cap.er.24h 0.4 Mg PO DAILY Lorazepam 0.5 Mg Tablet 0.5 Mg PO PRN Q6HRS PRN Melatonin 3 Mg Tablet 3 Mg PO QHS Metoprolol Succinate ( Xl ) (Metoprolol Succinate) 25 Mg Tab.er.24h 25 Mg PO DAILY Xalatan (Latanoprost) 2.5 Ml Drops 1 Drop EACHEYE QHS Multi-Day Plus Iron Tablet (Multivitamin/Iron/Folic Acid) 1 Each Tablet 1 Each PO DAILY Finasteride 5 Mg Tablet 5 Mg PO DAILY Calcium 500 + Vit D 200 Tablet (Calcium Carbonate/Vitamin D3) 1 Each Tablet 1 Each PO DAILY Tylenol (Acetaminophen) 325 Mg Tablet 650 Mg PO PRN Q6HRS PRN Famotidine 40 Mg Tablet 40 Mg PO DAILY Colace (Docusate Sodium) 100 Mg Capsule 100 Mg PO BID Miralax (Polyethylene Glycol 3350) 17 Gm Powd.pack 17 Gm PO DAILY Calcium 500 + Vit D 400 Tablet (Calcium Carbonate/Vitamin D3) 1 Each Tablet 1 Each PO DAILY Aspirin 81 Mg Tab.chew 81 Mg PO DAILY Multivitamins (Multivitamin) 1 Each Tablet 1 Tab PO DAILY I have reviewed the current psychotropics carefully including drug interactions. Risk benefit ratio favors no change other than as noted in my dictated progress note. 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
[2018-12-07] MEDS: LORazepam 0.5 MG TABLET PO PRN (22:59)
[2018-12-08 06:03] VITALS: BP 122/71
[2018-12-08 07:19] LABS: BASO # 0.1 x10^3/uL (0.0-0.2); BASO % 1 % (0-3); EOS # 0.3 x10^3/uL (0.0-0.7); EOS % 4 % (0-3); HEMATOCRIT 45.5 % (39.0-53.0); HEMOGLOBIN 15.7 g/dL (13.0-17.5); LYMPH # 2.9 x10^3/uL (1.0-4.8); LYMPH % 37 % (24-48); MEAN CORPUSCULAR HEMOGLOBIN 34 pg (25-35); MEAN CORPUSCULAR HGB CONC 34 g/dL (31-37); MEAN CORPUSCULAR VOLUME 98 fL (79-100); MONO % 12 % (0-9); NEUT # 3.6 x10^3uL (1.8-7.7); NEUT % 46 % (31-73); PLATELET COUNT 336 x10^3/uL (140-400); RED BLOOD COUNT 4.64 x10^6/uL (4.30-5.70); RED CELL DISTRIBUTION WIDTH 13.6 % (11.5-14.5)
[2018-12-08 07:28] LABS: ALBUMIN 2.9 g/dL (3.4-5.0); ALBUMIN/GLOBULIN RATIO 0.7 (1.0-1.7); GFR 70.7; MAGNESIUM 2.1 mg/dL (1.8-2.4); TOTAL BILIRUBIN 0.6 mg/dL (0.2-1.0); TOTAL PROTEIN 6.9 g/dL (6.4-8.2)
[2018-12-08] MEDS: POLYETHYLENE GLYCOL 3350 17 GM PACKET. PO SCH (07:58)
[2018-12-08] MEDS: DOCUSATE SODIUM 100 MG CAPSULE PO SCH ×2 (07:58→19:32)
[2018-12-08] MEDS: ASPIRIN 81 MG TAB.CHEW PO SCH (07:58)
[2018-12-08] MEDS: FAMOTIDINE 20 MG TABLET PO SCH (07:58)
[2018-12-08] MEDS: TAMSULOSIN 0.4 MG CAP.ER.24H. PO SCH (07:58)
[2018-12-08] MEDS: CALCIUM CARB/VIT D3 500/200 TABLET PO SCH (07:59)
[2018-12-08] MEDS: FINASTERIDE 5 MG TABLET PO SCH (07:59)
[2018-12-08] MEDS: METOPROLOL SUCC 24HR ER 25 MG TAB.ER.24H. PO SCH (07:59)
[2018-12-08] MEDS: MULTIVITAMIN with MINERAL TABLET. PO SCH (07:59)
[2018-12-08] MEDS ORDERED: CALCIUM CARBONATE PO SCH (09:00)
[2018-12-08] MEDS ORDERED: [UNRECOGNIZED DRUG - OTHER] PO SCH (09:00)
[2018-12-08] MEDS ORDERED: VITAMIN D3 PO SCH (09:00)
[2018-12-08] MEDS ORDERED: NON FORMULARY ITEM (Multivitamin (Multivitamins) 1 TAB) PO SCH (09:00)
--- NOTE | 2018-12-08 11:39 | NUR ---
Pt in dining room for meds and assessment. Pt compliant, calm, took meds whole. No behaviors noted. Pt hollers out occasionally. Wound care has been consulted for pressure ulcer on right heel. Pt also has le catheter dt urinary retention which he had on admission. Pt in onesie because he was pulling on catheter.
--- NOTE | 2018-12-08 11:52 | HP ---
ADMIT DATE: 12/07/2018 PSYCHIATRIC ADMISSION HISTORY/EVALUATION This late 12/07/2018 covers the elements not covered in my initial note 12/07/2018. I met with the patient evening of 12/07/2018. IDENTIFYING DATA: The patient is an 88-year-old male referred to us from [facility], referred by Dr. Staples, his primary care physician on account of yelling repetitively, having marked insomnia, socially disruptive, unmanageable at the facility. He was restless, attempting to stand, but is unable to transfer safely. He is agitated, had a rapid decline in his overall functioning. He was previously living at the [facility] and recently transferred to the long-term, totally unmanageable and referred for inpatient psychiatric stabilization. The patient was seen individually evening of 12/07/2018. Discussed with nursing staff, reviewed the chart, previously discussed with Constanza Kolb intake coordinate on receiving referral from Dr. Staples in the nursing facility. CHIEF COMPLAINT: "I don't know." The patient responded after I asked him when he came to the hospital and why and from where. He is oblivious of all of this. HISTORY OF PRESENT ILLNESS: The patient has a history of dementia, Alzheimer's vascular type, but despite this, he has been functioning at the [facility] at [facility] where he lived for about 27 years. More recently, he has been getting more confused, anxious, agitated with sleep and appetite changes and delusions. Behaviors at the nursing facility, long-term unit have been noted above. No active suicidal or homicidal ideation. No clear history of bipolar disorder. PAST PSYCHIATRIC HISTORY: As above. MEDICAL HISTORY: Positive for history of MT, irritable bowel syndrome, osteoarthritis, urinary retention, glaucoma. DRUG ALLERGIES: Negative. CODE STATUS: Full code. ACCU-CHEKS: None. DIET: Regular. Takes medications whole, ambulates in wheelchair. CURRENT PSYCHOTROPICS: Melatonin 3 mg at bedtime p.r.n., Ativan 0.5 mg q. 6 hours p.r.n. FAMILY HISTORY: Noncontributory. SOCIAL HISTORY: No history of alcohol, drug abuse, physical, sexual or elder abuse. He is not known to be a perpetrator. 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 He is single. No alcohol or drug abuse, physical, sexual or elder abuse history is noted. REACTION TO HOSPITALIZATION: The patient oblivious of this. ASSETS: Stable living at the above facility, supportive son. MENTAL STATUS EXAMINATION: The patient was seen individually evening of 12/07/2018. He is oriented to himself. Insight, judgment, recent and remote memory, attention, concentration, fund of knowledge poor, consistent with his diagnosis. IMPRESSION: Major neurocognitive disorder, Alzheimer, vascular with delusion, depression, behavioral disturbance; anxiety disorder, unspecified; impulse control disorder, unspecified; acute mental status changes. Rest as above. PLAN: Admit to geropsychiatry unit at [facility]. I will see the patient daily individually from a psychiatric standpoint. Medical followup with Dr. Staples. We will continue current psychotropics. Check with Dr. Staples on doing this screening test for Lyme disease as the son requests. Check a CT head if not done recently in the past 4 months. Observe baseline, then make further adjustments in psychotropics as clinically indicated with tentative plans to get back to [facility] post-stabilization. At the time of this dictation, I have been called by the nursing staffs last night around 2:00 a.m., the patient was extremely restless, agitated. We will add Zyprexa p.r.n., trazodone p.r.n. for insomnia and may consider Remeron 7.5 mg p.o. at bedtime, which in fact, we have initiated by the time I am dictating this note. MAN Elliott LLANES MD DR: TAYLER/marietta JOB#: [id number] / [id number]
--- NOTE | 2018-12-08 14:37 | NUR ---
LOKI left ms. for Sharona, nurse field case manager at [place], to discuss placement at time of discharge.
--- NOTE | 2018-12-08 14:38 | NUR ---
WEEKLY NOTE Pt. is eating approximately 75% of meals and slept 3 1/2 hours last night. Pt. has been restless, not sleeping, compliant with medications, and yelling out in bed. Pt. was not oriented upon his arrival and has had a huge decline in health. Pt. will have a CT scan performed. Pt. has no scheduled discharge at this time.
--- NOTE | 2018-12-08 14:41 | RAD ---
CT HEAD INDICATION: Altered mental status COMPARISON: 07/20/2018 Exposure: One or more of the following individualized dose reduction techniques were utilized for this examination: 1. Automated exposure control 2. Adjustment of the mA and/or kV according to patient size 3. Use of iterative reconstruction technique TECHNIQUE: 5 mm contiguous axial images were obtained from the skull base to the vertex in both bone and soft tissue algorithm. FINDINGS: No abnormal attenuation within the brain parenchyma. Basal ganglia calcifications identified. No evidence of acute intracranial hemorrhage. No extra-axial fluid collections. No mass effect or midline shift. Ventricular size is appropriate. Basal cisterns are patent. No fractures identified.Zimmerman-white differentiation is preserved.Globes and orbits are within normal limits. Paranasal sinuses and mastoid air cells are clear. IMPRESSION: No acute intracranial findings. Electronically signed by: Palomo Arteaga MD (12/08/2018 2:38 PM) [place] [id number]
--- NOTE | 2018-12-08 15:22 | NUR ---
Wound Care Wound care consult for R heel wound. Pt has stage II with DTI to posterior right heel, blister is deflated but skin still intact. Cleansed area, applied xeroform gauze and foam dressing, recommend to change every 3 days. Heel medix boot recommended while in bed. Pt has red yeasty rash to bilateral groin. Radha AMBROSIO took pt to shower to be cleaned up and will apply Nystatin powder afterwards. No other wounds noted on full skin inspection. WC will continue to follow for possible changes.
--- NOTE | 2018-12-08 15:24 | NUR ---
PSYCHOSOCIAL ASSESSMENT ADMISSION DATE: 12/07/18 CONTACT INFORMATION: DPOA/Guardian Contact Name: BHANU Vines Contact Address: [place], [place] Contact Phone #: [phone] ETHNIC ORIGIN: REASONS FOR ADMISSION: Agitated and Poor impulse control ADDITIONAL ADMISSION COMMENTS: Per pt. intake, pt. was yelling out repetitively, has insomnia, socially disruptive, restless, attempts to stand but unable to transfer safely, agitated, and has had a rapid decline. REASON FOR ADMISSION IN PATIENT/FAMILY'S OWN WORDS: Per pt., "I think part of the car races." Pt. nephew shared he was "having some mental problems" and "shouting in the evening." PATIENT/FAMILY EXPECTATIONS FOR ADMISSION: Per pt. nephew, "Is there a cure?" LIVING SITUATION: Retirement Contact Name: [facility] Contact Address: [address] [place] [id number] Contact Phone #: [phone] Contact Fax #: [phone] FAMILY RELATIONS: Marital Status: Single # of Marriages: 0 # of Children: 0 [facility] Family Support: Concerned and Cooperative Additional Comments r/t Family: Pt. idania, Krishna Poole, would like to be updated after treatment team. SIGNIFICANT PSYCHIATRIC/MEDICAL HISTORY: Psychiatric/Treatment History: Per pt., "Not nearly as much as people might think." Pt. idania shared, "I don't know of anything." He reports pt. has had a sharp decline since "September". Pertinent Family History: Pt. nephew shared, "not really." He did state pt. aunt could not "recognize her kids the last three years of her life." HISTORICAL DATA: Childhood Environment: Per pt., [place] Pt. shared he lived with his mother, father, one older brother, and one older sister. He was able to report his sister Valentina is still living but his brother Stanley has . 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 nephew added "[employer]". 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 Sikhism background: Per pt., "Yes" "I like to believe I belong to the Protestant Adventism." Sexual orientation: When ask about sexual orientation, pt. stated he is "not particularly" attracted to females or males. Educational Level: Pt. reports he graduated from high school and earned a degree in agriculture from [employer]. Past/Present Interests/Hobbies: Per pt., "Well, I can't say that I...." Pt. was unable to identify hobbies and interests. Pt. nephew shared pt. use to travel and "has been to practically every country". He is also interested in "trees". Financial support/resources: Senior Living/Pension and Social Security Monthly income: Unknown Person handling finances: Pt. idania believes Cornel Rob from [employer] handles pt. finances. Pt. reports he handles his own finances. Do you have a history of legal problems: N Cultural considerations: Per pt., "not really.' SOCIAL RELATIONSHIPS-CURRENT/PAST: Psychiatrist: None PCP: Dr. Staples Counselor/Therapist: None Veterans' Administration: None Support Group: None Industrial Rehabilitation Consultant/Clerical Associate: None Other relationships: None STRENGTHS & WEAKNESSES: Patient's strengths: Good family support, Education level, and Approachable Patient's weaknesses: Impulsive, sharp decline in health, and disruptive PRELIMINARY PLAN OF TREATMENT: Preliminary plan: Promote Coping Skill, Medication Stabilization, Monitor Med Effects, Control abnormal behavior, and Prevent Deterioration DISCHARGE PLANNING: Discharge planning/disposition: Current Living Arrangement ADDITIONAL INFORMATION: Pt. was able to supply a majority of the information for this assessment. Pt. idania and DPOA, Krishna Poole, was contacted for verification and clarification of assessment information.
[2018-12-08 16:00] VITALS: BP 140/84
[2018-12-08 17:20] LABS: THYROID STIM HORMONE (TSH) 2.604 uIU/mL (0.358-3.740)
[2018-12-08] MEDS: LORazepam 0.5 MG TABLET PO PRN (17:43)
[2018-12-08] MEDS ORDERED: CHOLECALCIFEROL (VITAMIN D3) 50,000 UNIT CAPSULE PO SCH (19:00)
[2018-12-08] MEDS: NYSTATIN TOPICAL POWDER 15GM BOTTLE. TP SCH (19:31)
[2018-12-08] MEDS: LATANOPROST 0.005% OPHTH SOLUTION 2.5ML BOTTLE. OU SCH (19:32)
[2018-12-08] MEDS: MELATONIN 3 MG TABLET PO SCH (19:32)
[2018-12-08] MEDS: MIRTAZAPINE 7.5 MG TABLET. PO SCH (19:35)
--- NOTE | 2018-12-08 22:55 | PDOC ---
Exam Note: Rich Note: Please also refer to the separate dictated note~for this date of service dictated separately.~Patient seen individually. Discussed the patient with Nursing staff reviewed the chart.~Reviewed interim history and current functioning. Reviewed vital signs,~Labs/ Radiology~and current medications noted below. Continue current treatment with the changes noted in the dictated addendum note Assessment: Vital Signs: Vital Signs Date Time Temp Pulse Resp B/P (MAP) Pulse Ox O2 Delivery O2 Flow Rate FiO2 12/08/18 16:00 97.5 70 16 140/84 (102) 97 I&O Intake and Output 12/08/18 07:00 Intake Total 360 ml Output Total 400 ml Balance -40 ml Intake Oral 360 ml Output Urine Total 400 ml Labs: Laboratory Tests Test 12/08/18 06:55 White Blood Count 8.0 x10^3/uL (4.0-11.0) Red Blood Count 4.64 x10^6/uL (4.30-5.70) Hemoglobin 15.7 g/dL (13.0-17.5) Hematocrit 45.5 % (39.0-53.0) Mean Corpuscular Volume 98 fL (79-100) Mean Corpuscular Hemoglobin 34 pg (25-35) Mean Corpuscular Hemoglobin Concent 34 g/dL (31-37) Red Cell Distribution Width 13.6 % (11.5-14.5) Platelet Count 336 x10^3/uL (140-400) Neutrophils (%) (Auto) 46 % (31-73) Lymphocytes (%) (Auto) 37 % (24-48) Monocytes (%) (Auto) 12 % (0-9) H Eosinophils (%) (Auto) 4 % (0-3) H Basophils (%) (Auto) 1 % (0-3) Neutrophils # (Auto) 3.6 x10^3uL (1.8-7.7) Lymphocytes # (Auto) 2.9 x10^3/uL (1.0-4.8) Monocytes # (Auto) 1.0 x10^3/uL (0.0-1.1) Eosinophils # (Auto) 0.3 x10^3/uL (0.0-0.7) Basophils # (Auto) 0.1 x10^3/uL (0.0-0.2) Sodium Level 142 mmol/L (136-145) Potassium Level 4.0 mmol/L (3.5-5.1) Chloride Level 106 mmol/L (98-107) Carbon Dioxide Level 28 mmol/L (21-32) Anion Gap 8 (6-14) Blood Urea Nitrogen 20 mg/dL (8-26) Creatinine 1.0 mg/dL (0.7-1.3) Estimated GFR (Cockcroft-Gault) 70.7 BUN/Creatinine Ratio 20 (6-20) Glucose Level 95 mg/dL (70-99) Calcium Level 9.0 mg/dL (8.5-10.1) Magnesium Level 2.1 mg/dL (1.8-2.4) Iron Level 97 ug/dL (65-175) Total Iron Binding Capacity 214 ug/dL (250-450) L Iron Saturation 45 % (15-34) H Total Bilirubin 0.6 mg/dL (0.2-1.0) Aspartate Amino Transferase (AST) 27 U/L (15-37) Alanine Aminotransferase (ALT) 41 U/L (16-63) Alkaline Phosphatase 215 U/L (46-116) H Total Protein 6.9 g/dL (6.4-8.2) Albumin 2.9 g/dL (3.4-5.0) L Albumin/Globulin Ratio 0.7 (1.0-1.7) L Triglycerides Level 72 mg/dL (0-150) Cholesterol Level 133 mg/dL (0-200) LDL Cholesterol, Calculated 80 mg/dL (0-100) VLDL Cholesterol, Calculated 14 mg/dL (0-40) Non-HDL Cholesterol Calculated 94 mg/dL (0-129) HDL Cholesterol 39 mg/dL (40-60) L Cholesterol/HDL Ratio 3.0 25-Hydroxy Vitamin D Total 27.0 ng/mL (30-100) L Thyroid Stimulating Hormone (TSH) 2.604 uIU/mL (0.358-3.740) Treponema pallidum Antibody Nonreactive (Nonreactive) Current Medications: Meds: Current Medications Acetaminophen (Tylenol) 650 mg PRN Q6HRS PRN PO PAIN / TEMP; Start 12/07/18 at 18:15; Status Cancel Multi-Ingredient Ointment (Analgesic [place]) 1 bert PRN QID PRN TP MUSCLE PAIN; Start 12/07/18 at 18:15 Al Hydroxide/Mg Hydroxide (Mylanta Plus Xs) 15 ml PRN AFTMEALHC PRN PO DYSPEPSIA; Start 12/07/18 at 18:15 Magnesium Hydroxide (Milk Of Magnesia) 2,400 mg PRN QHS PRN PO CONSTIPATION; Start 12/07/18 at 18:15 Acetaminophen (Tylenol) 650 mg PRN Q6HRS PRN PO PAIN; Start 12/07/18 at 18:45 Calcium/Vitamin D (Oscal D 500mg/ 200uts) 1 tab DAILY PO Last administered on 12/08/18 07:59; Start 12/08/18 at 09:00 Metoprolol Succinate (Toprol Xl) 25 mg DAILY PO Last administered on 12/08/18 07:59; Start 12/08/18 at 09:00 Tamsulosin HCl (Flomax) 0.4 mg DAILY PO Last administered on 12/08/18 07:58; Start 12/08/18 at 09:00 Aspirin (Children'S Aspirin) 81 mg DAILYWBKFT PO Last administered on 12/08/18 07:58; Start 12/08/18 at 08:00 Non-Formulary Medication (Calcium Carbonate/Vitamin D3 (Calcium 500 + Vit D 400 Tablet)) 1 each DAILY PO ; Start 12/08/18 at 09:00; Status UNV Docusate Sodium (Colace) 100 mg BID PO Last administered on 12/08/18 19:32; Start 12/07/18 at 21:00 Famotidine (Pepcid) 40 mg DAILY PO Last administered on 12/08/18 07:58; Start 12/08/18 at 09:00 Finasteride (Proscar) 5 mg DAILY PO Last administered on 12/08/18 07:59; Start 12/08/18 at 09:00 Latanoprost (Xalatan) 1 drop QHS OU Last administered on 12/08/18 19:32; Start 12/07/18 at 21:00 Lorazepam (Ativan) 0.5 mg PRN Q6HRS PRN PO ANXIETY / RESTLESSNESS Last administered on 12/08/18 17:43; Start 12/07/18 at 19:00 Melatonin 3 mg QHS PO Last administered on 6/6/19at 19:32; Start 12/07/18 at 21:00 Non-Formulary Medication (Multivitamin (Multivitamins)) 1 tab DAILY PO ; Start 12/08/18 at 09:00; Status UNV Multivitamins/ Calcium (Thera-M Plus) 1 tab DAILY PO Last administered on 12/08/18 07:59; Start 12/08/18 at 09:00 Polyethylene Glycol (miraLAX) 17 gm DAILY PO Last administered on 12/08/18at 07:58; Start 12/08/18 at 09:00 Olanzapine (ZyPREXA ZYDIS) 2.5 mg PRN Q2HR PRN PO PSYCHOSIS Last administered o n 12/08/18 14:33; Start 12/08/18 at 02:45 Trazodone HCl (Desyrel) 50 mg PRN QHS PRN PO INSOMNIA, MAY REPEAT X1; Start 12/08/18 at 02:45 Mirtazapine (Remeron) 7.5 mg QHS PO Last administered on 12/08/18at 19:35; Start 12/08/18 at 21:00 Nystatin (Nystop) 1 bert BID TP Last administered on 12/08/18at 19:31; Start 12/08/18 at 21:00 Vitamin D (Vitamin D3) 50,000 unit WEEKLY PO Last administered on 12/08/18 19:35; Start 12/08/18 at 19:00 Active Scripts Active Reported Flomax (Tamsulosin Hcl) 0.4 Mg Cap.er.24h 0.4 Mg PO DAILY Lorazepam 0.5 Mg Tablet 0.5 Mg PO PRN Q6HRS PRN Melatonin 3 Mg Tablet 3 Mg PO QHS Metoprolol Succinate ( Xl ) (Metoprolol Succinate) 25 Mg Tab.er.24h 25 Mg PO DAILY Xalatan (Latanoprost) 2.5 Ml Drops 1 Drop EACHEYE QHS Multi-Day Plus Iron Tablet (Multivitamin/Iron/Folic Acid) 1 Each Tablet 1 Each PO DAILY Finasteride 5 Mg Tablet 5 Mg PO DAILY Calcium 500 + Vit D 200 Tablet (Calcium Carbonate/Vitamin D3) 1 Each Tablet 1 Each PO DAILY Tylenol (Acetaminophen) 325 Mg Tablet 650 Mg PO PRN Q6HRS PRN Famotidine 40 Mg Tablet 40 Mg PO DAILY Colace (Docusate Sodium) 100 Mg Capsule 100 Mg PO BID Miralax (Polyethylene Glycol 3350) 17 Gm Powd.pack 17 Gm PO DAILY Calcium 500 + Vit D 400 Tablet (Calcium Carbonate/Vitamin D3) 1 Each Tablet 1 Each PO DAILY Aspirin 81 Mg Tab.chew 81 Mg PO DAILY Multivitamins (Multivitamin) 1 Each Tablet 1 Tab PO DAILY I have reviewed the current psychotropics carefully including drug interactions. Risk benefit ratio favors no change other than as noted in my dictated progress note. 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
[2018-12-09] MEDS: traZODone 50 MG TABLET. PO PRN (00:16)
--- NOTE | 2018-12-09 00:26 | NUR ---
PRN trazodone given for sleep, pt occasionally yells in bed.
[2018-12-09 01:15] LABS: THYROXINE 7.1 ug/dL (4.5-12.0)
--- NOTE | 2018-12-09 01:19 | CONS ---
DATE OF CONSULTATION: 12/08/2018 REASON FOR CONSULTATION: Medical management. HISTORY OF PRESENT ILLNESS: The patient is an 88-year-old male patient, a resident at [facility], who was referred to this unit on account of yelling repetitively, having marked insomnia, socially disruptive, unmanageable. He was restless, attempting to stand but was unable to transfer safely. He is agitated, has a rapid decline in his overall function. He was previously living at independent living and was recently transferred to [facility], totally unmanageable and referred for inpatient psychiatric stabilization. On questioning, he was extremely demented and does not give any useful information. The nursing staff said that he has groin and scrotal yeast infection and he has also what seemed to be paraphimosis. PAST MEDICAL HISTORY: Significant for coronary artery disease, status post CT, irritable bowel syndrome, osteoarthritis, benign prostatic hypertrophy with bladder outlet obstruction requiring indwelling Coleman catheter as well as glaucoma. PAST SURGICAL HISTORY: Unobtainable. ALLERGIES: He has no known drug allergies. MEDICATIONS: He is currently on following medications: He is on tamsulosin 0.4 mg daily, metoprolol tartrate 25 mg once a day, aspirin 81 mg once a day, Tylenol 650 mg every 6 hours, lorazepam 0.5 mg every 6 hours, calcium carbonate with vitamin D3 one tablet twice a day, latanoprost for Xalatan 1 drop to both eyes at bedtime, Colace 100 mg twice a day, polyethylene glycol 17 grams daily, famotidine 40 mg daily, multivitamin 1 tablet once a day, finasteride 5 mg once a day, melatonin 3 mg at bedtime. FAMILY HISTORY: Probably unremarkable and noncontributory. SOCIAL HISTORY: He is a resident at [facility]. 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 He is single. He does not drink alcohol or use drugs. PHYSICAL EXAMINATION: GENERAL: When I examined him this afternoon, he was sitting in his wheelchair, in no apparent distress. There was no pallor, jaundice, cyanosis, or thyromegaly. No jugular venous distension. No limb edema. VITAL SIGNS: His heart rate was 70, blood pressure 140/84, temperature was 97.5, respiratory rate was 16, and oxygen saturation was 97%. HEAD, EYES, EARS, NOSE, AND THROAT: Showed normocephalic, atraumatic. NECK: Supple. HEART: Showed normal first and second heart sounds. No gallop, rub, or murmur. CHEST: Clear to auscultation. No crepitation or rhonchi. ABDOMEN: Distended, soft, nontender. NEUROLOGIC: He was demented, but without any obvious lateralizing sign. All his cranial nerves are intact. He moves his upper extremities without difficulty. He is mostly wheelchair bound. He is very unsteady on his feet and very high fall risk. He has indwelling Coleman catheter. LABORATORY DATA: On admission showed a white cell count of 8000, hemoglobin 16, hematocrit 45, MCV 98, and platelet count of 336,000. His chemistry showed a serum sodium 142, potassium 4, chloride 106, bicarbonate 28, anion gap of 8, BUN 20, creatinine 1, estimated GFR was 71 mL per minute. His glucose was 95, calcium was 9, magnesium was 2.1. His serum iron was 97, TIBC was ____, iron saturation was 45%. His total bilirubin, AST, ALT are normal. Alkaline phosphatase slightly elevated. His total protein was 6.9, albumin was 2.9. Serum triglycerides 72, total cholesterol 133, LDL cholesterol was 80, VLDL was , HDL cholesterol was 59, the ratio was 3. His 25-hydroxy vitamin D was low at 27. TSH was normal at 2.604. His anti-treponema pallidum antibodies were nonreactive. He did have a CT scan of the head, which showed that there is no abnormal attenuation within the brain parenchyma, basal ganglia calcification identified. No evidence of acute intracranial hemorrhage, no extraaxial fluid collection, no mass effect or midline shift. Ventricular size is appropriate. Basal cisterns are patent. No fracture identified. Zimmerman-white differentiation is preserved. Globes and orbits are within normal limits. Paranasal sinuses and mastoid air cells are clear. IMPRESSION: In summary, this is an 88-year-old male patient who was admitted on account of yelling repeatedly, having marked insomnia, socially disruptive and unmanageable to the facility. He was restless, attempting to stand, but was unable to transfer safely. He is agitated, had a rapid decline in his overall functioning. He was previously living at the independent living and [facility] totally un[facility]able and referred for inpatient psychiatric stabilization. Medically, he obviously has benign prostatic hypertrophy with bladder outlet obstruction for which he has an indwelling Coleman catheter. He is already on Flomax and finasteride. His other medical problems include hypertension and glaucoma. He has also vitamin D deficiency for which I did start him on cholecalciferol 50,000 international unit once a week. Medically, he seemed to be overall reasonably stable. I will obviously follow all his lab works that are still pending at the time and make any necessary recommendation. Thank you, Dr. Burris for allowing me to participate in the care of this patient. YAZAN PENDLETON MD DR: PINKY/marietta JOB#: [id number] / [id number]
--- NOTE | 2018-12-09 01:59 | NUR ---
Quiet in bed now respirations regular snoring quietly.
[2018-12-09 05:54] VITALS: BP 144/71
[2018-12-09] MEDS: ASPIRIN 81 MG TAB.CHEW PO SCH (08:47)
[2018-12-09] MEDS: TAMSULOSIN 0.4 MG CAP.ER.24H. PO SCH (08:47)
[2018-12-09] MEDS: MULTIVITAMIN with MINERAL TABLET. PO SCH (08:48)
[2018-12-09] MEDS: POLYETHYLENE GLYCOL 3350 17 GM PACKET. PO SCH (08:48)
[2018-12-09] MEDS: FAMOTIDINE 20 MG TABLET PO SCH (08:48)
[2018-12-09] MEDS: DOCUSATE SODIUM 100 MG CAPSULE PO SCH ×2 (08:48→20:37)
[2018-12-09] MEDS: CALCIUM CARB/VIT D3 500/200 TABLET PO SCH (08:48)
[2018-12-09] MEDS: METOPROLOL SUCC 24HR ER 25 MG TAB.ER.24H. PO SCH (08:48)
[2018-12-09] MEDS: FINASTERIDE 5 MG TABLET PO SCH (08:48)
[2018-12-09] MEDS: NYSTATIN TOPICAL POWDER 15GM BOTTLE. TP SCH ×2 (08:48→20:37)
[2018-12-09 10:08] LABS: HEMOGLOBIN A1C 5.8 % (4.8-5.6)
[2018-12-09 16:19] VITALS: BP 121/76
[2018-12-09] MEDS: LATANOPROST 0.005% OPHTH SOLUTION 2.5ML BOTTLE. OU SCH (20:28)
[2018-12-09] MEDS: MIRTAZAPINE 7.5 MG TABLET. PO SCH (20:29)
[2018-12-09] MEDS: MELATONIN 3 MG TABLET PO SCH (20:29)
--- NOTE | 2018-12-09 22:35 | PDOC ---
Exam Note: Rich Note: Please also refer to the separate dictated note~for this date of service dictated separately.~Patient seen individually. Discussed the patient with Nursing staff reviewed the chart.~Reviewed interim history and current functioning. Reviewed vital signs,~Labs/ Radiology~and current medications noted below. Continue current treatment with the changes noted in the dictated addendum note Assessment: Vital Signs: Vital Signs Date Time Temp Pulse Resp B/P (MAP) Pulse Ox O2 Delivery O2 Flow Rate FiO2 12/09/18 16:19 97.8 80 20 121/76 (91) 96 Room Air I&O Intake and Output 12/09/18 07:00 Intake Total 940 ml Output Total 550 ml Balance 390 ml Intake Oral 940 ml Output Urine Total 550 ml # Bowel Movements 1 Current Medications: Meds: Current Medications Acetaminophen (Tylenol) 650 mg PRN Q6HRS PRN PO PAIN / TEMP; Start 12/07/18 at 18:15; Status Cancel Multi-Ingredient Ointment (Analgesic [place]) 1 bert PRN QID PRN TP MUSCLE PAIN; Start 12/07/18 at 18:15 Al Hydroxide/Mg Hydroxide (Mylanta Plus Xs) 15 ml PRN AFTMEALHC PRN PO DYSPEPSIA; Start 12/07/18 at 18:15 Magnesium Hydroxide (Milk Of Magnesia) 2,400 mg PRN QHS PRN PO CONSTIPATION; Start 12/07/18 at 18:15 Acetaminophen (Tylenol) 650 mg PRN Q6HRS PRN PO PAIN; Start 12/07/18 at 18:45 Calcium/Vitamin D (Oscal D 500mg/ 200uts) 1 tab DAILY PO Last administered on 12/09/18at 08:48; Start 12/08/18 at 09:00 Metoprolol Succinate (Toprol Xl) 25 mg DAILY PO Last administered on 12/09/18at 08:48; Start 12/08/18 at 09:00 Tamsulosin HCl (Flomax) 0.4 mg DAILY PO Last administered on 12/09/18at 08:47; Start 12/08/18 at 09:00 Aspirin (Children'S Aspirin) 81 mg DAILYWBKFT PO Last administered on 12/09/18at 08:47; Start 12/08/18 at 08:00 Non-Formulary Medication (Calcium Carbonate/Vitamin D3 (Calcium 500 + Vit D 400 Tablet)) 1 each DAILY PO ; Start 12/08/18 at 09:00; Status UNV Docusate Sodium (Colace) 100 mg BID PO Last administered on 12/09/18 20:37; Start 12/07/18 at 21:00 Famotidine (Pepcid) 40 mg DAILY PO Last administered on 12/09/18 08:48; Start 12/08/18 at 09:00 Finasteride (Proscar) 5 mg DAILY PO Last administered on 12/09/18 08:48; Start 12/08/18 at 09:00 Latanoprost (Xalatan) 1 drop QHS OU Last administered on 12/09/18 20:28; Start 12/07/18 at 21:00 Lorazepam (Ativan) 0.5 mg PRN Q6HRS PRN PO ANXIETY / RESTLESSNESS Last administered on 12/08/18 17:43; Start 12/07/18 at 19:00 Melatonin 3 mg QHS PO Last administered on 12/09/18 20:29; Start 12/07/18 at 21:00 Non-Formulary Medication (Multivitamin (Multivitamins)) 1 tab DAILY PO ; Start 12/08/18 at 09:00; Status UNV Multivitamins/ Calcium (Thera-M Plus) 1 tab DAILY PO Last administered on 12/09/18 08:48; Start 12/08/18 at 09:00 Polyethylene Glycol (miraLAX) 17 gm DAILY PO Last administered on 12/09/18 08:48; Start 12/08/18 at 09:00 Olanzapine (ZyPREXA ZYDIS) 2.5 mg PRN Q2HR PRN PO PSYCHOSIS Last administered on 12/08/18 14:33; Start 12/08/18 at 02:45 Trazodone HCl (Desyrel) 50 mg PRN QHS PRN PO INSOMNIA, MAY REPEAT X1 Last administered on 12/09/18 00:16; Start 12/08/18 at 02:45 Mirtazapine (Remeron) 7.5 mg QHS PO Last administered on 12/09/18 20:29; Start 12/08/18 at 21:00 Nystatin (Nystop) 1 bert BID TP Last administered on 6/7/19at 20:37; Start 12/08/18 at 21:00 Vitamin D (Vitamin D3) 50,000 unit WEEKLY PO Last administered on 12/08/18at 19:35; Start 12/08/18 at 19:00 Sertraline HCl (Zoloft) 25 mg DAILY PO ; Start 12/10/18 at 09:00 Active Scripts Active Reported Flomax (Tamsulosin Hcl) 0.4 Mg Cap.er.24h 0.4 Mg PO DAILY Lorazepam 0.5 Mg Tablet 0.5 Mg PO PRN Q6HRS PRN Melatonin 3 Mg Tablet 3 Mg PO QHS Metoprolol Succinate ( Xl ) (Metoprolol Succinate) 25 Mg Tab.er.24h 25 Mg PO DAILY Xalatan (Latanoprost) 2.5 Ml Drops 1 Drop EACHEYE QHS Multi-Day Plus Iron Tablet (Multivitamin/Iron/Folic Acid) 1 Each Tablet 1 Each PO DAILY Finasteride 5 Mg Tablet 5 Mg PO DAILY Calcium 500 + Vit D 200 Tablet (Calcium Carbonate/Vitamin D3) 1 Each Tablet 1 Each PO DAILY Tylenol (Acetaminophen) 325 Mg Tablet 650 Mg PO PRN Q6HRS PRN Famotidine 40 Mg Tablet 40 Mg PO DAILY Colace (Docusate Sodium) 100 Mg Capsule 100 Mg PO BID Miralax (Polyethylene Glycol 3350) 17 Gm Powd.pack 17 Gm PO DAILY Calcium 500 + Vit D 400 Tablet (Calcium Carbonate/Vitamin D3) 1 Each Tablet 1 Each PO DAILY Aspirin 81 Mg Tab.chew 81 Mg PO DAILY Multivitamins (Multivitamin) 1 Each Tablet 1 Tab PO DAILY I have reviewed the current psychotropics carefully including drug interactions. Risk benefit ratio favors no change other than as noted in my dictated progress note. 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
[2018-12-10] MEDS: traZODone 50 MG TABLET. PO PRN (00:08)
--- NOTE | 2018-12-10 00:17 | NUR ---
Pt sleeping but awakens frequently sometimes yells. PRN Trazodone given.
--- NOTE | 2018-12-10 01:30 | NUR ---
Sleeping well since PRN given.
--- NOTE | 2018-12-10 05:23 | NUR ---
Pt has been very confused but cooperative . No behaviors and slept well after PRN med given.
[2018-12-10 06:52] VITALS: BP 143/76
[2018-12-10] MEDS: TAMSULOSIN 0.4 MG CAP.ER.24H. PO SCH (09:00)
[2018-12-10] MEDS: METOPROLOL SUCC 24HR ER 25 MG TAB.ER.24H. PO SCH (09:00)
[2018-12-10] MEDS: FAMOTIDINE 20 MG TABLET PO SCH (09:00)
[2018-12-10] MEDS: DOCUSATE SODIUM 100 MG CAPSULE PO SCH (09:00)
[2018-12-10] MEDS: CALCIUM CARB/VIT D3 500/200 TABLET PO SCH (09:00)
[2018-12-10] MEDS ORDERED: SERTRALINE 25 MG TABLET. PO SCH (09:00)
[2018-12-10] MEDS: ASPIRIN 81 MG TAB.CHEW PO SCH (09:00)
[2018-12-10] MEDS: POLYETHYLENE GLYCOL 3350 17 GM PACKET. PO SCH (09:00)
[2018-12-10] MEDS: FINASTERIDE 5 MG TABLET PO SCH (09:00)
[2018-12-10] MEDS: MULTIVITAMIN with MINERAL TABLET. PO SCH (09:00)
[2018-12-10] MEDS: NYSTATIN TOPICAL POWDER 15GM BOTTLE. TP SCH (09:01)
--- NOTE | 2018-12-10 16:02 | PN ---
DATE: 12/08/2018 PSYCHIATRIC PROGRESS NOTE This late entry of 12/08/2018 covers elements not covered in my initial note. SUBJECTIVE: I met with the patient in the evening and staffed at a treatment team meeting with the entire team in the morning. Reviewed the patient's history. He has been living at [facility]. 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 He has been single. He is restless, sleeping very poorly just 3-1/2 hours. We will start Remeron 7.5 mg at bedtime. We will check a CT head if not done in 4 months. Appetite 75%. REVIEW OF SYSTEMS: No CV, , pulmonary, eye, ENT system symptoms on review. Reliability poor. Gait unsteady in wheelchair. MENTAL STATUS EXAM: Oriented to himself. Insight, judgment, recent and remote memory, attention, concentration, fund of knowledge poor consistent with his diagnoses mentioned in my initial note. PLAN: Start the Remeron as noted. Rest unchanged from initial note, but we may consider adding an SSRI agent for his anxiety. MAN Elliott LLANES MD DR: TAYLER/marietta JOB#: [id number] / [id number]
[2018-12-10 16:45] VITALS: BP 119/74
--- NOTE | 2018-12-10 16:59 | PN ---
DATE: 12/09/2018 PSYCHIATRIC PROGRESS NOTE PSYCHIATRIC PROGRESS NOTE This late entry of 12/09/2018 covers elements not covered in my initial note. SUBJECTIVE: I met with the patient in the evening. The patient slept 4 hours previous night. He did well in the morning. No yelling, but does yell out for help. REVIEW OF SYSTEMS: Ambulation impaired, in wheelchair. No CV, , pulmonary, eye, ENT system symptoms on review. Reliability poor. MENTAL STATUS EXAM: Oriented to himself. Insight, judgment, recent and remote memory, attention, concentration, fund of knowledge poor, consistent with his diagnosis mentioned in my initial note. PLAN: No change from initial note. Start Zoloft 25 mg a day for mood, anxiety symptoms. MAN Elliott LLANES MD DR: TAYLER/marietta JOB#: [id number] / [id number]
--- NOTE | 2018-12-10 19:08 | NUR ---
Pt tried standing up from his wheelchair, roof promenade tile setter told him to sit, pt didn't respond to roof promenade tile setter. Pt fell before roof promenade tile setter could get to him. Dr Tabor notified. Orders received for hip/pelvis xray. Xray showed broken right femur so pt to be transferred to [facility] for orthopedic surgeon. Family notified. Verge completed.
--- NOTE | 2018-12-10 20:10 | NUR ---
Report called to Hellen nurse at [facility] re pt status and pending transfer.
--- NOTE | 2018-12-10 20:27 | NUR ---
Pt on way to [facility] with EMS. Spoke with Krishna Steward informed of transfer to [facility].
--- NOTE | 2018-12-10 20:27 | RAD ---
Hip Bilateral x-rays with AP pelvis x-ray 5 views HISTORY: Bilateral hip and pelvis pain after a fall. FINDINGS: There is an acute traumatic right mid cervical femoral neck fracture with varus angulation and mild distraction, no dislocation. No fracture or dislocation of the left hip. No fracture of the pelvis evident. IMPRESSION: Acute traumatic right femoral neck fracture. Electronically signed by: Joao Washington MD (12/10/2018 8:24 PM) [facility]
--- NOTE | 2018-12-10 20:50 | PDOC ---
Exam Note: Rich Note: Please also refer to the separate dictated note~for this date of service dictated separately.~Patient seen individually. Discussed the patient with Nursing staff reviewed the chart.~Reviewed interim history and current functioning. Reviewed vital signs,~Labs/ Radiology~and current medications noted below. Continue current treatment with the changes noted in the dictated addendum note Assessment: Vital Signs: Vital Signs Date Time Temp Pulse Resp B/P (MAP) Pulse Ox O2 Delivery O2 Flow Rate FiO2 12/10/18 16:45 97.4 79 20 119/74 (89) 98 Room Air I&O Intake and Output 12/10/18 07:00 Intake Total 720 ml Balance 720 ml Intake Oral 720 ml # Bowel Movements 2 Current Medications: Meds: Current Medications Acetaminophen (Tylenol) 650 mg PRN Q6HRS PRN PO PAIN / TEMP; Start 12/07/18 at 18:15; Status Cancel Multi-Ingredient Ointment (Analgesic [place]) 1 bert PRN QID PRN TP MUSCLE PAIN; Start 12/07/18 at 18:15 Al Hydroxide/Mg Hydroxide (Mylanta Plus Xs) 15 ml PRN AFTMEALHC PRN PO DYSPEPSIA; Start 12/07/18 at 18:15 Magnesium Hydroxide (Milk Of Magnesia) 2,400 mg PRN QHS PRN PO CONSTIPATION; Start 12/07/18 at 18:15 Acetaminophen (Tylenol) 650 mg PRN Q6HRS PRN PO PAIN; Start 12/07/18 at 18:45 Calcium/Vitamin D (Oscal D 500mg/ 200uts) 1 tab DAILY PO Last administered on 12/10/18at 09:00; Start 12/08/18 at 09:00 Metoprolol Succinate (Toprol Xl) 25 mg DAILY PO Last administered on 12/10/18at 09:00; Start 12/08/18 at 09:00 Tamsulosin HCl (Flomax) 0.4 mg DAILY PO Last administered on 12/10/18at 09:00; Start 12/08/18 at 09:00 Aspirin (Children'S Aspirin) 81 mg DAILYWBKFT PO Last administered on 12/10/18at 09:00; Start 12/08/18 at 08:00 Non-Formulary Medication (Calcium Carbonate/Vitamin D3 (Calcium 500 + Vit D 400 Tablet)) 1 each DAILY PO ; Start 12/08/18 at 09:00; Status UNV Docusate Sodium (Colace) 100 mg BID PO Last administered on 12/10/18 09:00; Start 12/07/18 at 21:00 Famotidine (Pepcid) 40 mg DAILY PO Last administered on 12/10/18 09:00; Start 12/08/18 at 09:00 Finasteride (Proscar) 5 mg DAILY PO Last administered on 12/10/18 09:00; Start 12/08/18 at 09:00 Latanoprost (Xalatan) 1 drop QHS OU Last administered on 12/09/18 20:28; Start 12/07/18 at 21:00 Lorazepam (Ativan) 0.5 mg PRN Q6HRS PRN PO ANXIETY / RESTLESSNESS Last administered on 12/08/18 17:43; Start 12/07/18 at 19:00 Melatonin 3 mg QHS PO Last administered on 12/09/18 20:29; Start 12/07/18 at 21:00 Non-Formulary Medication (Multivitamin (Multivitamins)) 1 tab DAILY PO ; Start 12/08/18 at 09:00; Status UNV Multivitamins/ Calcium (Thera-M Plus) 1 tab DAILY PO Last administered on 12/10/18 09:00; Start 12/08/18 at 09:00 Polyethylene Glycol (miraLAX) 17 gm DAILY PO Last administered on 12/10/18 09:00; Start 12/08/18 at 09:00 Olanzapine (ZyPREXA ZYDIS) 2.5 mg PRN Q2HR PRN PO PSYCHOSIS Last administered on 12/08/18 14:33; Start 12/08/18 at 02:45 Trazodone HCl (Desyrel) 50 mg PRN QHS PRN PO INSOMNIA, MAY REPEAT X1 Last administered on 12/10/18 00:08; Start 12/08/18 at 02:45 Mirtazapine (Remeron) 7.5 mg QHS PO Last administered on 12/09/18 20:29; Start 12/08/18 at 21:00 Nystatin (Nystop) 1 bert BID TP Last administered on 12/10/18 09:01; Start 12/08/18 at 21:00 Vitamin D (Vitamin D3) 50,000 unit WEEKLY PO Last administered on 12/08/18at 19:35; Start 12/08/18 at 19:00 Sertraline HCl (Zoloft) 25 mg DAILY PO Last administered on 12/10/18at 09:02; Start 12/10/18 at 09:00 Active Scripts Active Reported Flomax (Tamsulosin Hcl) 0.4 Mg Cap.er.24h 0.4 Mg PO DAILY Melatonin 3 Mg Tablet 3 Mg PO QHS Metoprolol Succinate ( Xl ) (Metoprolol Succinate) 25 Mg Tab.er.24h 25 Mg PO DAILY Xalatan (Latanoprost) 2.5 Ml Drops 1 Drop EACHEYE QHS Multi-Day Plus Iron Tablet (Multivitamin/Iron/Folic Acid) 1 Each Tablet 1 Each PO DAILY Finasteride 5 Mg Tablet 5 Mg PO DAILY Calcium 500 + Vit D 200 Tablet (Calcium Carbonate/Vitamin D3) 1 Each Tablet 1 Each PO DAILY Tylenol (Acetaminophen) 325 Mg Tablet 650 Mg PO PRN Q6HRS PRN Famotidine 40 Mg Tablet 40 Mg PO DAILY Colace (Docusate Sodium) 100 Mg Capsule 100 Mg PO BID Miralax (Polyethylene Glycol 3350) 17 Gm Powd.pack 17 Gm PO DAILY Calcium 500 + Vit D 400 Tablet (Calcium Carbonate/Vitamin D3) 1 Each Tablet 1 Each PO DAILY Aspirin 81 Mg Tab.chew 81 Mg PO DAILY Multivitamins (Multivitamin) 1 Each Tablet 1 Tab PO DAILY I have reviewed the current psychotropics carefully including drug interactions. Risk benefit ratio favors no change other than as noted in my dictated progress note. 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
--- NOTE | 2018-12-10 21:00 | NUR ---
Transition Record was faxed to follow-up provider with the following elements: Reason for admission, procedures, tests, principal diagnosis, pending studies, patient instructions, 25/01 contact information for unit, phone number to obtain pending test results, plan for follow-up care, physician follow-up, advanced directive information, and medication list with dose, duration and instructions. This information was included in the following documents: History and physical, lab results, study results, progress notes, social work planning form, DC instruction form, patient visit summary, and medication reconciliation form. Date & time record faxed: 12/10/[id number] Record faxed to: Rosa Bhatia Record discussed with/ report given to: Hellen
--- NOTE | 2018-12-11 12:10 | DS ---
DATE OF DISCHARGE: 12/10/2018 DISCHARGE SUMMARY AND PSYCHIATRIC PROGRESS NOTE The patient admitted from [facility], referred by Dr. Staples. REASON FOR ADMISSION: Please refer to the admission history for details. Briefly, the patient is an 88-year-old male referred from [facility] by Dr. Staples on account of yelling repetitively, having marked insomnia, significant confusion, being socially disruptive, restless, attempting to stand, but is unable to transfer safely. He has been agitated. There has been a rapid decline and he has been unmanageable at the facility, thus they contacted us for inpatient stabilization. SIGNIFICANT FINDINGS AND CLINICAL COURSE: Following admission, the patient was seen daily individually by myself from a psychiatric standpoint, medical followup with Dr. Staples/Dr. Akbar Tabor. The patient was quite confused, anxious, restless, constantly trying to get out of his chair and nursing staff to call precautions possible for this. Psychiatrically, he seemed to be responding to Remeron 7.5 mg at bedtime, melatonin 3 mg at bedtime p.r.n., trazodone 50 mg at bedtime for insomnia. Zoloft was initiated for his mood and anxiety symptoms 25 mg a day. On 12/10/2018, the patient had a fall and x-ray showed a right hip fracture. Dr. Tabor evaluated the patient and he was then transferred to Orthopedics, Dr. Rosas at [facility] for further management. REVIEW OF SYSTEMS: Prior to discharge on 12/10/2018, ambulation impaired, in wheelchair. No CV, , pulmonary, eye system symptoms on review. Complains of pain in right hip. MENTAL STATUS EXAM: Oriented to himself. Insight, judgment, recent and remote memory, attention, concentration, fund of knowledge poor, consistent with his diagnosis. FINAL DIAGNOSES: Major neurocognitive disorder, Alzheimer, vascular with delusion; depression; behavioral disturbance; anxiety disorder, unspecified; impulse control disorder, unspecified; fractured right hip. Rest unchanged from admission. DISCHARGE MEDICATIONS: Please refer to the [facility]. DISCHARGE INSTRUCTIONS: Psychiatric medical and orthopedic followup at [facility]. Time for discharge day management greater than 30 minutes. I had met with Dr. Tabor and reviewed the x-ray of the hip prior to the patient's discharge and this was indicative of his fracture, right hip/femur. MAN Elliott LLANES MD DR: TAYLER/[place] JOB#: [id number] / [id number]
--- NOTE | 2018-12-14 15:02 | NUR ---
Assisted Rose Keller From [facility] with info from pts chart.
--- NOTE | 2018-12-14 15:05 | NUR ---
Jai Urbina from [place] picked up pts wc
== END 2018-12-10 21:06 | disposition short-term general hospital (02) | DRG 56 ==
LOC: GEROPSY 16:25
PROVIDERS: ADMIT Psychiatry & Neurology Psychiatry; ATTEND Psychiatry & Neurology Psychiatry
DX: G30.9 Alzheimer's disease, unspecified (principal); S72.031A Displaced midcervical fracture of right femur, initial encounter for closed fracture; B37.49 Other urogenital candidiasis; N13.8 Other obstructive and reflux uropathy; E55.9 Vitamin D deficiency, unspecified; F01.50 Vascular dementia, unspecified severity, without behavioral disturbance, psychotic disturbance, mood disturbance, and anxiety; F32.9 Major depressive disorder, single episode, unspecified; F41.9 Anxiety disorder, unspecified; F63.9 Impulse disorder, unspecified; G47.00 Insomnia, unspecified; H40.9 Unspecified glaucoma; I25.2 Old myocardial infarction; I10 Essential (primary) hypertension; N40.1 Benign prostatic hyperplasia with lower urinary tract symptoms; Z79.899 Other long term (current) drug therapy; K58.9 Irritable bowel syndrome, unspecified; M19.90 Unspecified osteoarthritis, unspecified site; R33.9 Retention of urine, unspecified; I25.10 Atherosclerotic heart disease of native coronary artery without angina pectoris; W18.39XA Other fall on same level, initial encounter; Y93.89 Activity, other specified; Y92.238 Other place in hospital as the place of occurrence of the external cause; Y99.8 Other external cause status
CPT/HCPCS: 36415; 70450; 73521; 80053; 80061; 82306; 83036; 83540; 83550; 83735; 84436; 84443; 84480; 85025; 86592; 86618; 93005; 97116; 97530